=== PATIENT | female | born 1970 | race Caucasian/White ===

== ENCOUNTER → 2020-04-28 | Outpatient (CLI) | payer BC ==
--- NOTE | 2020-04-28 12:08 | CT ---
EXAMINATION TYPE: CT abdomen w con DATE OF EXAM: 04/28/2020 COMPARISON: None HISTORY: Renal cysts CT DLP: 425.8 mGycm Automated exposure control for dose reduction was used. TECHNIQUE: Helical acquisition of images was performed from the lung bases through the top of iliac crest to include entire abdomen. Delayed axial images were obtained. CONTRAST: Performed with Oral Contrast and with IV Contrast, patient injected with 100 mL of Isovue 300. FINDINGS: LUNG BASES: Normal. LIVER/GB: Normal. PANCREAS: Normal. SPLEEN: Normal. ADRENALS: Normal. KIDNEYS: No hydronephrosis or hydroureter. There is synchronous homogenous renal enhancement and excr etion. There are scattered too small to characterize subcentimeter hypodense lesions of the right upp er pole and interpolar kidney, and left upper and lower poles. BOWEL: No obstruction. LYMPH NODES: No lymphadenopathy. OSSEOUS STRUCTURES: No significant abnormality is seen. PERITONEUM: No free air or free fluid is visualized. VASCULATURE: No abdominal aortic aneurysm. IMPRESSION: There are a few scattered too small to characterize subcentimeter hypodense lesions of the bilateral kidneys. Findings statistically most likely represent renal cysts. If there is clinical indication fo r follow-up, consider renal ultrasound in one year.
== END | disposition home or self-care (01) ==
LOC: RADCTMAIN 08:10
PROVIDERS: ATTEND Internal Medicine
DX: N28.89 Other specified disorders of kidney and ureter (principal)
CPT/HCPCS: 74160; Q9967

== ENCOUNTER 2020-06-21 08:38 | Emergency (ER) | payer BC ==
[2020-06-21 08:42] VITALS: TEMP 98
--- NOTE | 2020-06-21 09:14 | ED ---
Abdominal Pain HPI - General Chief Complaint: Abdominal Pain Stated Complaint: abd pain Time Seen by Provider: 06/21/20 08:43 Source: patient, RN notes reviewed Mode of arrival: ambulatory Limitations: no limitations - History of Present Illness Initial Comments: This 49-year-old female presents emergency department tingling of right-sided abdominal pain since November. Patient states she's been having increasing symptoms. She did see her primary care physician who HEADACHE BUT IS. PATIENT FOUND TO HAVE A NORMAL AND TINGLING OF HER URINE AND HER RIGHT KIDNEY CYST. SHE FOLLOWED UP WITH BAR TENDER WHO ORDERED A CT OF HER ABDOMEN 6 WEEKS AGO. PAT CELESTE STATES THAT SHE SOAKED AGAIN SHE HAS SMALL CYSTS BUT NO OTHER ADDITIONAL FINDINGS. SHE STATES HER BLOOD WORK HAS BEEN WITHIN NORMAL LIMITS. 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 SHE HAS NO DYSURIA SHE'S HAD A CHANGE IN BOWEL HABITS THOUGH SHE HAD A COLONOSCOPY WHICH WAS UNREMARKABLE. PATIENT STATES THAT SHE DID FOLLOW-UP WITH HOSPITAL INSURANCE REPRESENTATIVE RECOMMENDS HAVE AN ULTRASOUND. PATIENT STATES PAINS IN HER LOWER ABDOMEN AND PELVIC REGION. SHE DENIES ANY VAGINAL BLEEDING OR VAGINAL DISCHARGE. - Related Data Allergies Allergy/AdvReac Type Severity Reaction Status Date / Time bacitracin Allergy Rash/Hives Verified 06/21/20 08:43 [From Neosporin ([id number])] Iodinated Contrast Media Allergy Anaphylaxis Verified 06/21/20 08:42 neomycin Allergy Rash/Hives Verified 06/21/20 08:43 [From Neosporin ([id number])] peanut Allergy Anaphylaxis Verified 06/21/20 08:43 polymyxin B Allergy Rash/Hives Verified 06/21/20 08:43 [From Neosporin ([id number])] Review of Systems ROS Statement: Those systems with pertinent positive or pertinent negative responses have been documented in the HPI. ROS Other: All systems not noted in ROS Statement are negative. Past Medical History Past Medical History: Hypertension History of Any Multi-Drug Resistant Organisms: None Reported Past Surgical History: Section Additional Past Surgical History / Comment(s): Retina Repar (left eye) Smoking Status: Never smoker Past Alcohol Use History: Occasional Past Drug Use History: None Reported General Exam Limitations: no limitations General appearance: alert, in no apparent distress Head exam: Present: atraumatic, normocephalic, normal inspection Eye exam: Present: normal appearance, PERRL, EOMI. Absent: scleral icterus, conjunctival injection, periorbital swelling ENT exam: Present: normal exam, normal oropharynx, mucous membranes moist Neck exam: Present: normal inspection. Absent: tenderness, meningismus, lymphadenopathy Respiratory exam: Present: normal lung sounds bilaterally. Absent: respiratory distress, wheezes, rales, rhonchi, stridor Cardiovascular Exam: Present: regular rate, normal rhythm, normal heart sounds. Absent: systolic murmur, diastolic murmur, rubs, gallop, clicks GI/Abdominal exam: Present: soft, tenderness (Mild right lower quadrant), normal bowel sounds. Absent: distended, guarding, rebound, rigid Back exam: Absent: CVA tenderness (R), CVA tenderness (L) Neurological exam: Present: alert, oriented X3 Skin exam: Present: warm, dry, intact, normal color. Absent: rash Course Vital Signs 06/21/20 06/21/20 08:38 08:50 Temperature 98.0 F Pulse Rate 67 Respiratory 16 Rate Blood Pressure 142/76 O2 Sat by Pulse 99 Oximetry Medical Decision Making - Medical Decision Making 49-year-old presented for lower abdominal pain. Patient prior records were reviewed no significant findings. Patient's ultrasound of pelvis shows left lateral focal fibroid 3 x 3 cm multiple cysts largest 9 mm, left ovary prominent on follicle 2 cm no evidence of torsion patient advised follow-up with HOSPITAL INSURANCE REPRESENTATIVE. Patient has a follow-up with her PCP. Patient has been seen by nephrology and ECP prior for this pain. - Lab Data Result diagrams: 06/21/20 09:02 06/21/20 09:02 Lab Results 06/21/20 06/21/20 06/21/20 Range/Units 09:02 09:02 09:02 WBC 5.0 (3.8-10.6) k/uL RBC 4.57 (3.80-5.40) m/uL Hgb 13.0 (11.4-16.0) gm/dL Hct 40.2 (34.0-46.0) % MCV 88.0 (80.0-100.0) fL MCH 28.4 (25.0-35.0) pg MCHC 32.3 (31.0-37.0) g/dL RDW 12.4 (11.5-15.5) % Plt Count 193 (150-450) k/uL Neutrophils % 68 % Lymphocytes % 19 % Monocytes % 7 % Eosinophils % 4 % Basophils % 1 % Neutrophils # 3.4 (1.3-7.7) k/uL Lymphocytes # 0.9 L (1.0-4.8) k/uL Monocytes # 0.4 (0-1.0) k/uL Eosinophils # 0.2 (0-0.7) k/uL Basophils # 0.0 (0-0.2) k/uL Sodium 138 (137-145) mmol/L Potassium 4.5 (3.5-5.1) mmol/L Chloride 105 (98-107) mmol/L Carbon Dioxide 24 (22-30) mmol/L Anion Gap 9 mmol/L BUN 19 H (7-17) mg/dL Creatinine 0.66 (0.52-1.04) mg/dL Est GFR (CKD-EPI)AfAm >90 (>60 ml/min/1.73 sqM) Est GFR (CKD-EPI)NonAf >90 (>60 ml/min/1.73 sqM) Glucose 79 (74-99) mg/dL Calcium 8.8 (8.4-10.2) mg/dL Total Bilirubin 0.7 (0.2-1.3) mg/dL AST 28 (14-36) U/L ALT 9 (4-34) U/L Alkaline Phosphatase 53 (38-126) U/L Total Protein 7.5 (6.3-8.2) g/dL Albumin 4.5 (3.5-5.0) g/dL Urine Color Light Yellow Urine Appearance Clear (Clear) Urine pH 6.0 (5.0-8.0) Ur Specific [place] 1.013 (1.001-1.035) Urine Protein Negative (Negative) Urine Glucose (UA) Negative (Negative) Urine Ketones Negative (Negative) Urine Blood Small H (Negative) Urine Nitrite Negative (Negative) Urine Bilirubin Negative (Negative) Urine Urobilinogen <2.0 (<2.0) mg/dL Ur Leukocyte Esterase Negative (Negative) Urine RBC <1 (0-5) /hpf Urine WBC <1 (0-5) /hpf Ur Squamous Epith Cells 2 (0-4) /hpf Urine Bacteria Occasional H (None) /hpf Urine Mucus Rare H (None) /hpf Disposition Clinical Impression: Lower abdominal pain, Uterine fibroid Disposition: HOME SELF-CARE Condition: Stable Instructions (If sedation given, give patient instructions): Abdominal Pain (ED) Additional Instructions: Please return to the Emergency Department if symptoms worsen or any other concerns. Is patient prescribed a controlled substance at d/c from ED?: No Referrals: Edgardo Enciso MD [Primary Care Provider] - 1-2 days Time of Disposition: 10:45
[2020-06-21 09:22] LABS: Basophils % (A) 1 %; Eosinophils # (A) 0.2 k/uL (0-0.7); Eosinophils % (A) 4 %; HCT 40.2 % (34.0-46.0); Lymphocytes # (A) 0.9 k/uL (1.0-4.8); Lymphocytes % (A) 19 %; MCH 28.4 pg (25.0-35.0); MCHC 32.3 g/dL (31.0-37.0); Mean Platelet Volume 8.5; Monocytes # (A) 0.4 k/uL (0-1.0); Monocytes % (A) 7 %; Neutrophils # (A) 3.4 k/uL (1.3-7.7); Neutrophils % (A) 68 %; Platelet Count 193 k/uL (150-450); RBC 4.57 m/uL (3.80-5.40); RDW 12.4 % (11.5-15.5)
[2020-06-21 09:38] LABS: ALT 9 U/L (4-34); AST 28 U/L (14-36); African American GFR (CKD) >90 (>60 ml/min/1.73 sqM); Albumin 4.5 g/dL (3.5-5.0); Alkaline Phosphatase 53 U/L (38-126); Anion Gap 9 mmol/L; Blood Urea Nitrogen 19 mg/dL (7-17); Calcium 8.8 mg/dL (8.4-10.2); Carbon Dioxide 24 mmol/L (22-30); Chloride 105 mmol/L (98-107); Glucose 79 mg/dL (74-99); Non-African American GFR(CKD) >90 (>60 ml/min/1.73 sqM); Sodium 138 mmol/L (137-145); Total Bilirubin 0.7 mg/dL (0.2-1.3); Total Protein 7.5 g/dL (6.3-8.2)
--- NOTE | 2020-06-21 09:48 | US ---
EXAMINATION TYPE: US transvaginal plus Doppler DATE OF EXAM: 06/21/2020 COMPARISON: NONE CLINICAL HISTORY: 49-year-old female with intermittent RLQ pain since November 2019. History of c-sectio n TECHNIQUE: Transvaginal (TV). Color Doppler and spectral waveform analysis of the ovarian arteries a nd veins. Date of LMP: 05/18/20 FINDINGS: EXAM MEASUREMENTS: Uterus: 10.5 x 5.2 x 7.6 cm Endometrial Stripe: 0.9 cm Right Ovary: 2.6 x 1.1 x 1.0 cm Left Ovary: 3.2 x 2.2 x 2.7 cm 1. Uterus: Anteverted. Myometrium is heterogeneous. Left lateral focal fibroid 3.0 x 2.5 x 2.9cm a long the uterine body/lower uterine segment is primarily intramural. Multiple cervical nabothian cyst s, largest measuring 9 mm. 2. Endometrium: appears wnl 3. Right Ovary: Small follicle noted 4. Left Ovary: probable dominant follicle = 1.7 x 2.0 x 1.8cm Spectral, color and waveform doppler imaging shows good arterial and venous flow within the ovaries ; there is no evidence for ovarian torsion. 5. Bilateral Adnexa: prominent vascularity left adnexa 6. Posterior cul-de-sac: appears wnl IMPRESSION: 1. No sonographic evidence for ovarian torsion. 2. A 2.0 cm dominant follicle or functional cyst in the left ovary. 3. A 3 cm focal fibroid along the left lateral uterine body/lower uterine segment region. 4. Prominent vascularity in the left adnexa is nonspecific. It may be be seen in the setting of pelvi c congestion syndrome. Clinically correlate.
[2020-06-21 10:00] LABS: Potassium 4.5 mmol/L (3.5-5.1)
[2020-06-21] MEDS ORDERED: SODIUM CHLORIDE 0.9% 1,000 ML IV ONE (10:03)
[2020-06-21 10:32] LABS: Appearance,Urine Clear (Clear); Bacteria,Urine Occasional /hpf; Bilirubin,Urine Negative (Negative); Blood,Urine Small (Negative); Color,Urine Light Yellow; Glucose,Urine (UA) Negative (Negative); Ketones,Urine Negative (Negative); Leukocyte Esterase,Urine Negative (Negative); Mucus,Urine Rare /hpf; Nitrite,Urine Negative (Negative); Protein,Urine Negative (Negative); RBC,Urine <1 /hpf (0-5); Specific Gravity,Urine 1.013 (1.001-1.035); Squamous Epithelial Cell,Urine 2 /hpf (0-4); Urobilinogen,Urine <2.0 mg/dL (<2.0); WBC,Urine <1 /hpf (0-5)
[2020-06-21 10:59] VITALS: BP 121/65; PULSE 66; RESP 18
== END 2020-06-21 10:58 | disposition home or self-care (01) ==
LOC: EC 08:38
DX: D25.1 Intramural leiomyoma of uterus (principal); N83.02 Follicular cyst of left ovary; Z88.1 Allergy status to other antibiotic agents; Z91.010 Allergy to peanuts; Z91.041 Radiographic dye allergy status
CPT/HCPCS: 36415; 76830; 80053; 81001; 85025; 93975; 96360; 99284